=== PATIENT | female | born 1990 | race Caucasian/White ===

== ENCOUNTER 2016-07-05 09:55 | Emergency (ER) | payer OTHER ==
[~2016-07-05] VITALS: Wt 76.0 kg
[~2016-07-05 09:55] MED LIST: IRON45TA2 PO; NOVO3I IV; NPH,100V SQ; PREN1TAB17 PO
--- NOTE | 2016-07-05 12:25 | RADRPT ---
PROCEDURE: US OB. CLINICAL INDICATION: pain, No FHT TECHNIQUE: Transabdominal views of the pelvis are available for review. COMPARISON: 05/10/16 FINDINGS: There is a single intrauterine gestation with the crown-rump length measuring 7.1 cm, corresponding to a gestational age of 13 weeks and 2 days. The heart rate is noted at 154 bpm. The ovaries are not visualized. There is no free fluid. RPTAT: AA IMPRESSION: Single live intrauterine with an estimated gestational age of 13 weeks and 2 days, based o n ultrasound measurements. ELIZABETH based on ultrasound measurements is 01/08/17. .Sunday Laurent MD, MD Date Time Electronically viewed and signed by .Sunday Laurent MD, MD on 07/05/2016 12:25 .S/
--- NOTE | 2016-07-05 12:34 | ERD ---
ER Documentation Chief Complaint Date/Time DATE: 07/05/16 TIME: 12:31 Chief Complaint SENT FOR NO HEART TONE HPI This is a female who presents to the emergency department today by her clinic for no heart tones on upward. Patient is approximately 13-14 weeks . Patient was sent here to emergency department for further evaluation of an ultrasound. Patient denies any abdominal pain, vaginal bleeding, dysuria. ROS All systems reviewed and are negative except as per history of present illness. Medications Home Meds Reported Medications Insulin Aspart* (Novolog Insulin Pen*) 100 Unit/Ml Soln, 12 UNIT IV AC BREAKFAST DINNER 03/17/13 Nph, Human Insulin Isophane (Humulin N) 100 Units/Ml Vial, 20 SQ AC MEALS 03/17/13 Nph, Human Insulin Isophane (Humulin N) 100 Units/Ml Vial, 30 SQ AC DINNER 03/17/13 Iron,Carbonyl (IRON) 45 Mg Tablet, 45 MG PO DAILY 03/17/13 Vit-Iron Fumarate-FA ( Tablet) 1 Each Tablet, 1 EACH PO DAILY 03/17/13 Allergies Allergies: Coded Allergies: No Known Allergies (Verified Allergy, Unknown, 05/10/16) PMhx/Soc History of Surgery: Yes (csection) Anesthesia Reaction: No Hx Neurological Disorder: No Hx Respiratory Disorders: No Hx Cardiac Disorders: No Hx Psychiatric Problems: No Hx Miscellaneous Medical Probl: Yes (gestational diabetes) Hx Alcohol Use: No Hx Substance Use: No Hx Tobacco Use: No Smoking Status: Never smoker Physical Exam Vitals Vital Signs Date Time Temp Pulse Resp B/P Pulse Ox O2 Delivery O2 Flow Rate FiO2 07/05/16 10:04 98.4 100 18 143/74 99 Physical Exam Const: Well-appearing, no acute distress Head: Atraumatic Eyes: Normal Conjunctiva ENT: Normal External Ears, Nose and Mouth. Neck: Full range of motion..~ No meningismus. Resp: Clear to auscultation bilaterally Cardio: Regular rate and rhythm, no murmurs Abd: Soft, non tender, non distended. Normal bowel sounds. No right lower quadrant pain. No left lower quadrant pain. Skin: No petechiae or rashes Ext: No cyanosis, or edema Neur: Awake and alert Psych: Normal Mood and Affect Procedures/MDM This is a 25 year-old female who presents to emergency department today by her clinic for no heart tones at her visit today. Patient is a 14 week and has gestational diabetes. Patient denied any abdominal pain, dysuria, vaginal bleeding and I do not feel the patient requires a complete OB workup. Patient had been seen here in April for vaginal bleeding however there is no vaginal bleeding at this time. I did obtain a second trimester ultrasound Per the ultrasound report patient has a single live intrauterine with an estimate gestational age of 13 weeks and 2 days. ELIZABETH based on ultrasound measurement is 01/08/2017. heart rate is noted 154 bpm. There is no free fluid. I have explained the results the patient. She may follow up with her clinic for further evaluation. I do not feel the patient requires laboratory work or other imaging at this time. Patient appears to have a viable . She is followed for her gestational diabetes at her clinic. Low suspicion for acute surgical abdomen. Discussed the patient with Dr. Singh and he is in agreement with the plan. Departure Diagnosis: Primary Impression: Unable to hear heart tones as reason for ultrasound scan Condition: SHAVON Fitch PA-C Jul 05, 2016 12:34
== END 2016-07-05 12:44 | disposition home or self-care (01) ==
LOC: FTE 09:55
DX: O36.8910 Maternal care for other specified fetal problems, first trimester, not applicable or unspecified (principal); O24.414 Gestational diabetes mellitus in pregnancy, insulin controlled; Z3A.13 13 weeks gestation of pregnancy; Z79.4 Long term (current) use of insulin
CPT/HCPCS: 76801; Z7502

== ENCOUNTER 2016-09-24 21:35 | Outpatient (CLI) | payer OTHER ==
[~2016-09-24] VITALS: Ht 162.6 cm; Wt 96.2 kg
[2016-09-24 21:50] VITALS: Ht 162.6 cm; Wt 96.2 kg
[2016-09-24 21:51] VITALS: BP 137/75; PULSE 96; RESP 18
[2016-09-24 22:50] LABS: ADD SCAN DIFF NO
[2016-09-24 22:52] LABS: BASOPHILS % 0.2 % (0.0-2.0); EOSINOPHILS # 0.1 10^3/ul (0.0-0.5); EOSINOPHILS % 0.8 % (0.0-7.0); HEMATOCRIT 31.4 % (37.0-47.0); LYMPHOCYTES # 1.9 10^3/ul (0.8-2.9); LYMPHOCYTES % 19.6 % (15.0-51.0); MEAN CORPUSCULAR HEMOGLOBIN 30.3 pg (29.0-33.0); MEAN CORPUSCULAR VOLUME 86.5 fl (82.0-101.0); MEAN PLATELET VOLUME 9.3 fl (7.4-10.4); MONOCYTE # 0.5 10^3/ul (0.3-0.9); MONOCYTES % 5.2 % (0.0-11.0); NEUTROPHIL # 7.2 10^3/ul (1.6-7.5); NEUTROPHILS % 72.9 % (39.0-77.0); PLATELET COUNT 267 10^3/UL (140-415); RED BLOOD COUNT 3.63 10^6/ul (4.20-5.40); RED CELL DISTRIBUTION WIDTH 12.8 % (11.5-14.5); WHITE BLOOD COUNT 9.8 10^3/ul (4.8-10.8)
[2016-09-24 22:57] LABS: ADD UMIC YES; URINE BILIRUBIN (Dip) NEGATIVE (NEGATIVE); URINE BLOOD (Dip) NEGATIVE (NEGATIVE); URINE COLOR LT. YELLOW (YELLOW); URINE GLUCOSE (Dip) NEGATIVE (NEGATIVE); URINE KETONES (Dip) NEGATIVE (NEGATIVE); URINE LEUKOCYTE ESTERASE (Dip) TRACE (NEGATIVE); URINE NITRITE (Dip) NEGATIVE (NEGATIVE); URINE TOTAL PROTEIN (Dip) NEGATIVE (NEGATIVE); URINE UROBILINOGEN (Dip) 0.2 E.U./dL (0.1-1.0)
[2016-09-24 23:08] LABS: SQUAMOUS EPITHELIAL CELL,UR FEW; URINE RBCS 0-2 /HPF (0)
--- NOTE | 2016-09-24 23:27 | TRIAGE ---
OB Triage Datetime Report Generated by CPN: 09/24/2016 23:26 Datetime: 09/24/2016 23:15 Bedside Blood Glucose: 96 Datetime: 09/24/2016 21:52 Assessment Type: Triage Maternal Assessment Level of Consciousness: Fully Conscious DTR's/Clonus: DTRs 2+; No Clonus Headache: Denies Blurred Vision: No Respiratory Effort: Unlabored Nausea/Vomiting: Denies RUQ Epigastric Pain: Denies Lower Extremities Edema: None Degree: None Upper Extremities Edema: None Degree: None Facial Edema: None Fall Risk Assessment History of Falling: (0) No Secondary Diagnosis: (0) No Ambulatory Aid: (0) Bedrest/Nurse Assist IV Therapy: (0) No Gait: (0) Normal/Bedrest/Immobile Mental Status: (0) Oriented to Own Ability Fall Score: 0 Fall Risk Score Definition: No Risk: No action required Datetime: 09/24/2016 21:46 Time of Arrival: 09/24/2016 21:35 EGA: 25.6 Arrived By: Wheelchair Arrived From: Home Chief Complaint: right side abdominal pain comes and goes Movement: Present Contractions: Denies/Absent Rupture of Membranes: Denies Vaginal Bleeding: None Vaginal Discharge: Denies Recent Sexual Intercouse: Denies Abdominal Trauma: Not Applicable Patient Complaints: Other Time Provider Notified: 09/24/2016 22:00 Provider Notified: Trinity Initial Plan: NATTY
--- NOTE | 2016-09-24 23:41 | PN ---
Date/Time of Note Date/Time of Note DATE: 09/24/16 TIME: 23:33 OB Subjective Subjective Subjective 25 y.o at 25w5d with c/o RLQ alexy for few days on and off no GI sx or febrile episodes or urinary sx alleviated by resting ,aggreviated by activities, roll over to opposite site OB Objective Objective Objective no uterine contractions detected abdomen soft no sinificant tenderness or rebound tenderness or guarding or referring tenderness u/a neg urine culture was sent CBC CMP all wnl OB Assessment/Plan Other Assessment: ligament pain Other plan: d/s home with abdominal binder rec to rest rth if sx increased f/u with her OB in 2days FRANSISCO DELONG MD September 24, 2016 23:41
== END 2016-09-24 23:26 | disposition home or self-care (01) ==
LOC: OBT 21:35 → L-D 21:36 → OBT 23:26
PROVIDERS: ATTEND Obstetrics & Gynecology
DX: O26.892 Other specified pregnancy related conditions, second trimester (principal); R10.2 Pelvic and perineal pain; Z3A.25 25 weeks gestation of pregnancy
CPT/HCPCS: 81001; 82962; 85025; 87086; Z7500; 81003; G0463

== ENCOUNTER 2016-10-13 15:52 | Outpatient (CLI) | payer OTHER ==
[~2016-10-13] VITALS: Ht 162.6 cm; Wt 94.9 kg
[2016-10-13 15:58] VITALS: BMI 35.9
[2016-10-13 16:09] VITALS: BP 125/71; PULSE 103; RESP 19; Ht 162.6 cm; Wt 94.9 kg
[2016-10-13] MEDS ORDERED: INSU100I22 SC (16:17)
--- NOTE | 2016-10-13 16:33 | RADRPT ---
PROCEDURE: OB ultrasound for biophysical profile CLINICAL INDICATION: Biophysical profile. . TECHNIQUE: Multiple sonographic images of the pelvis were obtained. Transabdominal views are obta ined. COMPARISON: 07/05/2016 FINDINGS: Single intrauterine gestation. Presentation: Cephalic. Placenta: Anterior. No evidence of placental abruption. No evidence of placenta previa. breathing movement = 2/2 tone = 2/2 motion = 2/2 TOSHIA = 2/2 TOSHIA = 15.7 cm heart rate: 174 beats per minute IMPRESSION: Single intrauterine gestation. Biophysical profile 12/31 RPTAT: AADD .Napoleon Larsen MD, MD Date Time Electronically viewed and signed by .Napoleon Larsen MD, on 10/13/2016 16:33 .B/
--- NOTE | 2016-10-13 17:11 | QN ---
Documentation Comment iup 28 weeks DFM vss exam wnl US wnl a/p DFM resolved dc home AUBREY RICHEY MD October 13, 2016 17:11
--- NOTE | 2016-10-13 17:16 | TRIAGE ---
OB Triage Datetime Report Generated by CPN: 10/13/2016 17:15 Datetime: 10/13/2016 16:53 Stage of : OB Triage Maternal Assessment Level of Consciousness: Fully Conscious DTR's/Clonus: DTRs 1+ Headache: Denies Breath Sounds, Left: Clear and Equal Breath Sounds, Right: Clear and Equal Nausea/Vomiting: Denies RUQ Epigastric Pain: Denies Monitor Mode: External Resting Tone [place]: Relaxed Heart Rate FHR Baseline Rate: 140 Monitor Mode: External US Variability: Moderate 6-25 bpm Accelerations: 15X15 Decelerations: None Category: Category I Pain Assessment Pain Scale: 0 Pain Presence: None/Denies Pain Type: N/A Pain Goal: 3 Vaginal Exam Membrane Status: Intact Datetime: 10/13/2016 16:10 Maternal Assessment Level of Consciousness: Fully Conscious DTR's/Clonus: DTRs 1+ Headache: Denies Blurred Vision: No Respiratory Effort: Unlabored Breath Sounds, Left: Clear and Equal Breath Sounds, Right: Clear and Equal Nausea/Vomiting: Denies RUQ Epigastric Pain: Denies Facial Edema: None Monitor Mode: External Resting Tone [place]: Relaxed Heart Rate FHR Baseline Rate: 140 Monitor Mode: External US Variability: Moderate 6-25 bpm Accelerations: 15X15 Decelerations: None Category: Category I Pain Assessment Pain Scale: 0 Pain Presence: None/Denies Pain Type: N/A Pain Goal: 3 Vaginal Exam Membrane Status: Intact Datetime: 10/13/2016 15:59 Assessment Type: Triage Maternal Assessment Level of Consciousness: Fully Conscious DTR's/Clonus: DTRs 2+; No Clonus Headache: Denies Blurred Vision: No Respiratory Effort: Unlabored; Regular Rhythm; Equal Expansion Breath Sounds, Left: Clear and Equal Breath Sounds, Right: Clear and Equal Nausea/Vomiting: Denies RUQ Epigastric Pain: Denies Lower Extremities Edema: None Degree: None Upper Extremities Edema: None Degree: None Facial Edema: None Fall Risk Assessment History of Falling: (0) No Secondary Diagnosis: (0) No Ambulatory Aid: (0) Bedrest/Nurse Assist IV Therapy: (0) No Gait: (0) Normal/Bedrest/Immobile Mental Status: (0) Oriented to Own Ability Fall Score: 0 Fall Risk Score Definition: No Risk: No action required Datetime: 10/13/2016 15:55 Stage of : OB Triage Time of Arrival: 10/13/2016 15:55 EGA: 28.4 Arrived By: Ambulatory Arrived From: Home Chief Complaint: DFM SINCE FRIDAY Movement: Present Contractions: Denies/Absent Rupture of Membranes: Denies Vaginal Discharge: Denies Recent Sexual Intercouse: Denies Abdominal Trauma: Not Applicable Additional Patient Complaints: NONE Time Provider Notified: 10/13/2016 16:00 Provider Notified: SHAMSIAN Initial Plan: NST AND BPP Datetime: 09/24/2016 23:14 Labor Evaluation Frequency: 0 Monitor Mode: External Duration (sec)2399: 0 Pattern: Normal: <= 5 Contractions in 10 Minutes Resting Tone [place]: Relaxed Contraction Comments: uterus soft, pt denies feeling cramping. Heart Rate FHR Baseline Rate: 150 Monitor Mode: External US Variability: Moderate 6-25 bpm Accelerations: 15X15 Decelerations: None Category: Category I Datetime: 09/24/2016 21:52 Fall Score: 0 Fall Risk Score Definition: No Risk: No action required Datetime: 09/24/2016 21:46 EGA: 25.6
== END 2016-10-13 17:09 | disposition home or self-care (01) ==
LOC: OBT 15:52 → L-D 15:53 → OBT 17:09
PROVIDERS: ATTEND Obstetrics & Gynecology
DX: O36.8120 Decreased fetal movements, second trimester, not applicable or unspecified (principal); Z3A.28 28 weeks gestation of pregnancy
CPT/HCPCS: 76818; G0463

== ENCOUNTER 2016-10-26 19:54 | Outpatient (CLI) | payer OTHER ==
[~2016-10-26] VITALS: Ht 162.6 cm; Wt 98.6 kg
[~2016-10-26 19:54] MED LIST changes: +INSU100I22 SC
[2016-10-26 20:10] VITALS: BP 135/71; PULSE 95; RESP 18
[2016-10-26] MEDS ORDERED: ASPI-664 PO (20:18)
[2016-10-26] MEDS ORDERED: FERR325C PO (20:19)
--- NOTE | 2016-10-26 22:43 | QN ---
Documentation Comment OB Triage- Laborist Pt is a 25yo at 30+3 with hx of C/S x2 presenting for progressively enlarging bump near c/s scar. Pt states she mentioned this to her clinic provider twice but did not receive instructions for what to do about it. States bump hurts when she touches it. Her mother, an RN, instructed her to use warm compresses on the area and pt has been doing so 3x/day with little improvement. Reports normal FM, denies fevers, chills, N/V, diarrhea, LOF, VB or UCs. VS T 98.3 BP 135/71 119/65 P 94 R 18 FHT: baseline 150s, mod olivia, +accels, no decels [place]: acontractile Abd: soft, gravid, 1.5x1.5cm firm, tender, mobile nodule under the pannus approx 2FB superior to healed Pfannenstiel incision, no fluctance, no surrounding erythema or edema PROCEDURE: Ultrasound soft tissues limited CLINICAL INDICATION: Lower abdominal wall. TECHNIQUE: Real time sonographic imaging of the anterior abdominal wall in the suprapubic region is performed and a total of 9 [place] scale as well as Doppler images are submitted for review COMPARISON: None available FINDINGS: In the area of concern there is an ovoid hypoechoic structure measuring 1.5 x 1.4 x 0.5 cm having increased through transmission and no internal blood flow. No additional abnormality is demonstrated. RPTAT:HJJR IMPRESSION: Ovoid hypoechoic collection in the in the suprapubic region of concern, the finding possibly an abscess of 1.5 cm. Seroma, hematoma and infected subcutaneous cysts are possibilities. Clinical follow-up is recommended. Assessment Abdominal U/S concerning for abscess vs seroma vs hematoma vs infected subcutaneous cyst Reactive NST Plan Pt is without signs/sxs of toxicity and able to tolerate POs. Given abscess is not drainable at this time, will start pt on Cephalexin 500mg q6H x7d. Rx given Baseline CBC F/up in 48H in OB triage for re-evaluation Pt to f/u w/outpatient OB clinic as scheduled Strict infection, PTL, PPROM and FKC precautions reviewed Questions answered to patient's satisfaction TORI GILES MD Oct 26, 2016 22:43
--- NOTE | 2016-10-26 23:10 | RADRPT ---
PROCEDURE: Ultrasound soft tissues limited CLINICAL INDICATION: Lower abdominal wall. TECHNIQUE: Real time sonographic imaging of the anterior abdominal wall in the suprapubic region i s performed and a total of 9 [place] scale as well as Doppler images are submitted for review COMPARISON: None available FINDINGS: In the area of concern there is an ovoid hypoechoic structure measuring 1.5 x 1.4 x 0.5 cm having in creased through transmission and no internal blood flow. No additional abnormality is demonstrated. RPTAT:HJJR IMPRESSION: Ovoid hypoechoic collection in the in the suprapubic region of concern, the finding possibly an absc ess of 1.5 cm. Seroma, hematoma and infected subcutaneous cysts are possibilities. Clinical follow -up is recommended. Physician Halle Date Time Electronically viewed and signed by Physician Halle on 10/26/2016 23:09 /
[2016-10-27 00:38] LABS: ADD SCAN DIFF NO
[2016-10-27 00:42] LABS: BASOPHILS % 0.1 % (0.0-2.0); EOSINOPHILS # 0.1 10^3/ul (0.0-0.5); EOSINOPHILS % 0.6 % (0.0-7.0); HEMATOCRIT 32.8 % (37.0-47.0); HEMOGLOBIN 11.2 g/dl (12.0-16.0); LYMPHOCYTES # 2.4 10^3/ul (0.8-2.9); LYMPHOCYTES % 22.1 % (15.0-51.0); MEAN CORPUSCULAR HEMOGLOBIN 29.9 pg (29.0-33.0); MEAN CORPUSCULAR HGB CONC 34.1 g/dl (32.0-37.0); MEAN CORPUSCULAR VOLUME 87.5 fl (82.0-101.0); MEAN PLATELET VOLUME 9.8 fl (7.4-10.4); MONOCYTE # 0.5 10^3/ul (0.3-0.9); MONOCYTES % 4.8 % (0.0-11.0); NEUTROPHIL # 7.8 10^3/ul (1.6-7.5); NEUTROPHILS % 71.5 % (39.0-77.0); PLATELET COUNT 282 10^3/UL (140-415); RED BLOOD COUNT 3.75 10^6/ul (4.20-5.40); RED CELL DISTRIBUTION WIDTH 12.8 % (11.5-14.5); WHITE BLOOD COUNT 10.8 10^3/ul (4.8-10.8)
== END 2016-10-26 23:45 | disposition home or self-care (01) ==
LOC: OBT 19:54 → L-D 19:54 → OBT 23:45
PROVIDERS: ATTEND Obstetrics & Gynecology
DX: O26.893 Other specified pregnancy related conditions, third trimester (principal); R10.30 Lower abdominal pain, unspecified; Z3A.30 30 weeks gestation of pregnancy
CPT/HCPCS: 36415; 76536; 85025; Z7500; G0463

== ENCOUNTER 2016-10-28 12:11 | Outpatient (CLI) | payer OTHER ==
[~2016-10-28] VITALS: Ht 162.6 cm; Wt 96.5 kg
[~2016-10-28 12:11] MED LIST changes: +ASPI-664 PO; +FERR325C PO; -IRON45TA2 PO
[2016-10-28 13:40] VITALS: Ht 162.6 cm; Wt 96.5 kg
[2016-10-28 13:41] VITALS: BP 106/58; PULSE 90
--- NOTE | 2016-10-28 14:51 | QN ---
Documentation Comment iup 29 weeks abd pain vss exam wnl us wnl a/p iup 29 weeks false labor AUBREY RICHEY MD Oct 28, 2016 14:51
== END 2016-10-28 16:00 | disposition home or self-care (01) ==
LOC: OBT 12:11 → L-D 12:12 → OBT 16:00
PROVIDERS: ATTEND Obstetrics & Gynecology
DX: O47.03 False labor before 37 completed weeks of gestation, third trimester (principal); Z3A.29 29 weeks gestation of pregnancy
CPT/HCPCS: 82962; Z7500; G0463

== ENCOUNTER 2016-11-02 14:46 | Inpatient (IN) | payer OTHER ==
[~2016-11-02] VITALS: Ht 162.6 cm; Wt 95.1 kg
[2016-11-02] MEDS: LACTATED RINGER'S 1,000 ML IV SCH (01:15)
[2016-11-02 15:14] VITALS: BP 122/74; PULSE 103; RESP 18
[2016-11-02] MEDS ORDERED: NPH,100I5 SQ (15:31)
[2016-11-02] MEDS ORDERED: CALC600T11 PO (15:32)
[2016-11-02] MEDS ORDERED: ACETAMINOPHEN 325 MG TAB PO PRN ×2 (16:15→16:30)
[2016-11-02] MEDS ORDERED: LACTATED RINGER'S 1,000 ML IV* SCH (16:30)
--- NOTE | 2016-11-02 16:37 | PN ---
Triage Information Date/Time Weeks of Gestation Patient is 3 para 2 at 31+3 weeks of gestation : 3 Para: 2 Diabetes: gestational Diabetes management: insulin controlled Hypertention: none Additional information Patient presents with lower back pain and reports occasional contractions Objective Vital Signs Date Time Temp Pulse Resp B/P Pulse Ox O2 Delivery O2 Flow Rate FiO2 11/02/16 15:14 98.3 103 18 122/74 98 Room Air Exam heart rate positive accelerations, no decelerations [place] irregular Results/Medications Medications Current Medications Lactated Ringer's (Lr) 1,000 ml @ 0 mls/hr Q0M IV* ; Start 11/02/16 at 16:30 Acetaminophen (Tylenol Tab) 650 mg Q4H PRN PO PAIN AND OR ELEVATED TEMP; Start 11/02/16 at 16:15 Assessment/Plan 31+3 weeks of gestation with contractions Patient gestational diabetic insulin-dependent We will start IV fluid Accu-Chek Tylenol for back pain We will obtain cervical length and fibronectin and biophysical profile FELISHA QUIJANO MD Nov 02, 2016 16:37
--- NOTE | 2016-11-02 17:28 | RADRPT ---
PROCEDURE: OB ultrasound limited for biophysical profile . CLINICAL INDICATION: labor. TECHNIQUE: Multiple sonographic images of the pelvis were obtained. Transabdominal view of the gr avid uterus are available for review. The images were reviewed on a PACS workstation. COMPARISON: 10/13/2016 FINDINGS: breathing movement = 2/2 tone = 2/2 motion = 2/2 Amniotic fluid volume = 2/2 TOSHIA = 13.5 cm Cephalic presentation. Heart rate 144 beats per minute. Anterior grade 0 placenta. Cervix appears closed measuring 4.6 cm in length. IMPRESSION: 1. Single viable intrauterine gestation. 2. Biophysical profile = 8/8. 3. TOSHIA = 13.5 cm. RPTAT: QQ .Eldon Chaidez MD, Date Time Electronically viewed and signed by .Eldon Chaidez MD, on 11/02/2016 17:28 .L/
[2016-11-02] MEDS ORDERED: LACTATED RINGER'S 1,000 ML IV SCH (20:00)
--- NOTE | 2016-11-02 21:23 | HP ---
Date/Time of Note Date/Time of Note DATE: 11/02/16 TIME: 21:18 OB - History Hx of Present Free Text/Dictation Patient 3 para 2 at 31+3 weeks of gestation who presented with contractions Patient received 2 L of IV fluid hydration and continued to contract every 2-3 minutes despite the hydration Patient's prior obstetrical history significant for 2 PROCEDURE: OB ultrasound limited for biophysical profile . CLINICAL INDICATION: labor. TECHNIQUE: Multiple sonographic images of the pelvis were obtained. Transabdominal view of the gravid uterus are available for review. The images were reviewed on a PACS workstation. COMPARISON: 10/13/2016 FINDINGS: breathing movement = 2/2 tone = 2/2 motion = 2/2 Amniotic fluid volume = 2/2 TOSHIA = 13.5 cm Cephalic presentation. Heart rate 144 beats per minute. Anterior grade 0 placenta. Cervix appears closed measuring 4.6 cm in length. IMPRESSION: 1. Single viable intrauterine gestation. 2. Biophysical profile = 8/8. 3. TOSHIA = 13.5 cm. RPTAT: QQ .Eldon Chaidez MD, MD Date Time Electronically viewed and signed by .Eldon Chaidez MD, MD on 11/02/2016 17:28 .L/ CC: FELISHA QUIJANO MD : 3 Para: 2 Care: Good Care Obstetrical Complications: Gestational Diabetes Other Concerns: Patient has gestational diabetes currently on insulin Past Family/Social History * Past Medical, Surgical, Family and Obstetric Histories reviewed from chart. OB Admission Exam Vital Signs Vital Signs Vital Signs Date Time Temp Pulse Resp B/P Pulse Ox O2 Delivery O2 Flow Rate FiO2 11/02/16 15:14 98.3 103 18 122/74 98 Room Air Physical Exam HEENT: WNL Heart: Rhythm Normal Lungs: Clear, Equal Abdomen: WNL Extremities: Normal Reflexes: Normal Cervical Dilatation: None Membranes: Intact Heart Rate: 140's Accelerations: Accelerations Present Decelerations: No Decelerations Contractions on Admission: < 5 Minutes Apart Last 72 hourBlood Glucose Bedside Glucose - 72 Hours Test 11/02/16 17:35 Bedside Glucose 67mg/dL (70-220) L OB Assessment/Plan Other Assessment: 31+3 weeks of gestation with contractions Patient with gestational diabetes currently on insulin Patient with prior history of 2 Other plan: We will admit to antepartum We will start Procardia 30 mg p.o. twice daily We will give betamethasone for lung maturity We will obtain perinatology consult FELISHA QUIJANO MD Nov 02, 2016 21:23
[2016-11-02] MEDS ORDERED: AL HYDROX/MG HYDROX/SIMETH 30 ML CUP PO PRN (21:30)
--- NOTE | 2016-11-02 21:44 | TRIAGE ---
OB Triage Datetime Report Generated by CPN: 11/02/2016 21:44 Datetime: 11/02/2016 19:00 Labor Evaluation Frequency: OCCASIONAL Monitor Mode: External Duration (sec)2399: 50-80 Quality: Mild Pattern: Normal: <= 5 Contractions in 10 Minutes Resting Tone [place]: Relaxed Contraction Comments: UPSIDE DOWN Monitor Mode: External US Comments: FHTS OFF MONITOR WHILE PT SITTING UP, EATING. Datetime: 11/02/2016 18:57 Assessment Type: Triage Datetime: 11/02/2016 17:36 Bedside Blood Glucose: 67 Datetime: 11/02/2016 17:00 Labor Evaluation Frequency: 2-5 Monitor Mode: External Duration (sec)2399: 50-90 Quality: Mild Pattern: Normal: <= 5 Contractions in 10 Minutes Resting Tone [place]: Relaxed Monitor Mode: External US Comments: OFF MONITOR DUE TO MOVEMENT Datetime: 11/02/2016 15:59 Labor Evaluation Frequency: 2-5 Monitor Mode: External Duration (sec)2399: 50-80 Quality: Mild Pattern: Normal: <= 5 Contractions in 10 Minutes Resting Tone [place]: Relaxed Heart Rate FHR Baseline Rate: 155 Monitor Mode: External US FHR Baseline Changes: No Baseline Change Variability: Moderate 6-25 bpm Accelerations: 15X15 Datetime: 11/02/2016 15:23 Labor Evaluation Frequency: 2-6 Monitor Mode: External Duration (sec)2399: 50-100 Quality: Mild Resting Tone [place]: Relaxed Heart Rate FHR Baseline Rate: 150 Monitor Mode: External US FHR Baseline Changes: No Baseline Change Variability: Moderate 6-25 bpm Accelerations: 15X15 Decelerations: None Category: Category I Datetime: 11/02/2016 15:22 Stage of : OB Triage Assessment Type: Triage Maternal Assessment Level of Consciousness: Fully Conscious Headache: Denies Blurred Vision: No Respiratory Effort: Unlabored; Regular Rhythm; Equal Expansion Breath Sounds, Left: Clear and Equal Breath Sounds, Right: Clear and Equal Nausea/Vomiting: Denies RUQ Epigastric Pain: Denies Lower Extremities Edema: None Degree: None Upper Extremities Edema: None Degree: None Facial Edema: None Temperature Route: Oral Fall Risk Assessment History of Falling: (0) No Secondary Diagnosis: (0) No Ambulatory Aid: (0) Bedrest/Nurse Assist IV Therapy: (0) No Gait: (0) Normal/Bedrest/Immobile Mental Status: (0) Oriented to Own Ability Fall Score: 0 Fall Risk Score Definition: No Risk: No action required Pain Assessment Pain Scale: 6 Pain Presence: Constant Pain Type: Cramping Pain Location: Back Pain Assessment Comments: PT ALSO REPORTS FEELING ABDOMINAL TIGHTENING AND PRESSURE Q2MIN, BUT DEN IES PAIN. Datetime: 11/02/2016 15:18 Time of Arrival: 11/02/2016 14:38 EGA: 31.3 Arrived By: Wheelchair Arrived From: Emergency Dept Chief Complaint: CONSTANT LOWER BACK PAIN FROM 11/01, 11/02; PT ALSO REPORTS FEELING ABDOMINI GAL TIGHTENING AND PRESSURE, BUT DENIES ABDOMINAL PAIN. Movement: Present Contractions: Regular Time Contractions Began: 11/01/2016 20:00 Contractions: 2 Rupture of Membranes: Denies Vaginal Bleeding: None Vaginal Discharge: Present Recent Sexual Intercouse: Denies Abdominal Trauma: Not Applicable Patient Complaints: Back Pain; Other Time Provider Notified: 11/02/2016 16:50 Provider Notified: DR. QUIJANO Initial Plan: EFM x2, FFN, CERVICAL LENGTH, IV HYDRATION, TYLENOL FOR BACK PAIN, ACCUCHECK, BPP Datetime: 10/28/2016 15:43 Bedside Blood Glucose: 69 Datetime: 10/28/2016 15:01 Stage of : OB Triage Datetime: 10/28/2016 14:37 Labor Evaluation Frequency: 0 Resting Tone [place]: Relaxed Monitor Mode: External US Comments: MATERNAL Pain Assessment Pain Scale: 0 Pain Presence: None/Denies Pain Type: N/A Pain Goal: 3 Pain Relief Measures: Comfort Measures Datetime: 10/28/2016 13:39 Stage of : OB Triage Datetime: 10/28/2016 13:37 Stage of : OB Triage Assessment Type: Triage Maternal Assessment Level of Consciousness: Fully Conscious DTR's/Clonus: DTRs 2+; No Clonus Headache: Denies Blurred Vision: No Respiratory Effort: Unlabored; Regular Rhythm; Equal Expansion Breath Sounds, Left: Clear and Equal Breath Sounds, Right: Clear and Equal Nausea/Vomiting: Denies RUQ Epigastric Pain: Denies Facial Edema: None Temperature Route: Axillary Fall Risk Assessment History of Falling: (0) No Secondary Diagnosis: (0) No Ambulatory Aid: (0) Bedrest/Nurse Assist IV Therapy: (0) No Gait: (0) Normal/Bedrest/Immobile Mental Status: (0) Oriented to Own Ability Fall Score: 0 Fall Risk Score Definition: No Risk: No action required Labor Evaluation Frequency: 0 Monitor Mode: External Pattern: Normal: <= 5 Contractions in 10 Minutes Resting Tone [place]: Relaxed Heart Rate FHR Baseline Rate: 150 Monitor Mode: External US Variability: Moderate 6-25 bpm Accelerations: 10X10 Decelerations: None Category: Category I Pain Assessment Pain Scale: 0 (Annotations: UNLESS TOUCHING ABSCESS) Pain Presence: None/Denies Pain Type: N/A Pain Location: Abdomen Pain Goal: 3 Pain Relief Measures: Comfort Measures Datetime: 10/28/2016 13:36 Time of Arrival: 10/28/2016 13:00 EGA: 30.5 Arrived By: Ambulatory Arrived From: Home Chief Complaint: FOLLOW UP POSS ABDOMINAL ABCESS DENIES LEAKING OF FLUID, BLEEDING OR UC'S Movement: Present Contractions: Denies/Absent Rupture of Membranes: Denies Vaginal Bleeding: None Vaginal Discharge: Denies Recent Sexual Intercouse: Denies Abdominal Trauma: Not Applicable Patient Complaints: None Time Provider Notified: 10/28/2016 13:39 Provider Notified: SHAMSIAN Initial Plan: MONITOR, Datetime: 10/26/2016 23:27 Stage of : OB Triage Datetime: 10/26/2016 23:15 Stage of : OB Triage Datetime: 10/26/2016 22:13 Stage of : OB Triage Datetime: 10/26/2016 22:03 Stage of : OB Triage Datetime: 10/26/2016 21:25 Stage of : OB Triage Datetime: 10/26/2016 21:04 Stage of : OB Triage Labor Evaluation Frequency: 0 Monitor Mode: External Resting Tone [place]: Relaxed Heart Rate FHR Baseline Rate: 150 Monitor Mode: External US Variability: Moderate 6-25 bpm Accelerations: 15X15 Decelerations: None Category: Category I Pain Assessment Pain Scale: 2 Pain Presence: Constant Pain Type: Ache Pain Location: Abdomen Pain Relief Measures: Comfort Measures Pain Assessment Comments: Pain related to small low abdominal lump. Datetime: 10/26/2016 20:31 Stage of : OB Triage Datetime: 10/26/2016 20:29 Stage of : OB Triage Datetime: 10/26/2016 20:22 Time of Arrival: 10/26/2016 19:43 EGA: 30.3 Arrived By: Wheelchair Arrived From: Home Chief Complaint: Painful small abdominal protrusion Movement: Present Contractions: Denies/Absent Rupture of Membranes: Denies Vaginal Discharge: Denies Recent Sexual Intercouse: Denies Abdominal Trauma: Not Applicable Patient Complaints: Other Time Provider Notified: 10/26/2016 20:20 Provider Notified: JESUSITA Initial Plan: VS, EFM, Eval by laborist, NST, CBC Datetime: 10/26/2016 20:14 Stage of : OB Triage Datetime: 10/26/2016 20:13 Assessment Type: Triage Maternal Assessment Level of Consciousness: Fully Conscious DTR's/Clonus: DTRs 2+; No Clonus Headache: Denies Blurred Vision: No Respiratory Effort: Unlabored Breath Sounds, Left: Clear and Equal Breath Sounds, Right: Clear and Equal Nausea/Vomiting: Denies RUQ Epigastric Pain: Denies Lower Extremities Edema: None Degree: None Upper Extremities Edema: None Degree: None Facial Edema: None Fall Risk Assessment History of Falling: (0) No Secondary Diagnosis: (15) Yes (Annotations: GDM ON INSULIN CS X 2) Ambulatory Aid: (0) Bedrest/Nurse Assist IV Therapy: (0) No Gait: (0) Normal/Bedrest/Immobile Mental Status: (0) Oriented to Own Ability Fall Score: 15 Fall Risk Score Definition: No Risk: No action required Datetime: 10/26/2016 20:00 Stage of : OB Triage Comments: Maternal pulse captured as indicated by SPO2 monitoring Datetime: 10/26/2016 19:55 Stage of : OB Triage Monitor Mode: External Monitor Mode: External US Datetime: 10/13/2016 15:59 Fall Score: 0 Fall Risk Score Definition: No Risk: No action required Datetime: 10/13/2016 15:55 EGA: 28.4 Datetime: 09/24/2016 21:52 Fall Score: 0 Fall Risk Score Definition: No Risk: No action required Datetime: 09/24/2016 21:46 EGA: 25.6
[2016-11-02] MEDS ORDERED: GLUCAGON 1 MG INJ IM PRN (22:00)
[2016-11-02] MEDS ORDERED: GLUCOSE GEL 15 GRAM TUBE BUCCAL PRN (22:00)
[2016-11-02] MEDS ORDERED: DEXTROSE 50% 50 ML SYRINGE IV PRN ×2 (22:00)
[2016-11-02] MEDS ORDERED: GLUCOSE GEL 15 GRAM TUBE PO PRN ×2 (22:00)
[2016-11-02] MEDS: BETAMET NA PHOS/AC(6 MG/ML) 5ML INJ IM SCH (23:02)
[2016-11-02] MEDS: NIFEdipine (XL) 30 MG TAB PO SCH (23:02)
[2016-11-02] MEDS: INSULIN ISOPHANE (NPH) 10 ML INJ SC SCH (23:15)
[2016-11-03] MEDS: LACTATED RINGER'S 1,000 ML IV SCH ×3 (05:22→16:51)
[2016-11-03] MEDS: ACCU-CHEK XX SCH ×5 (06:00→20:12)
[2016-11-03] MEDS ORDERED: INSULIN ISOPHANE (NPH) 10 ML INJ SC SCH ×2 (07:05→21:00)
[2016-11-03] MEDS ORDERED: NPH, HUMAN INSULIN ISOPHANE 3ML VIAL SC SCH (07:30)
[2016-11-03] MEDS ORDERED: INSULIN ASPART [NOVOLOG] 3 ML PEN SC SCH (07:35)
[2016-11-03] MEDS: NIFEdipine (XL) 30 MG TAB PO SCH ×2 (08:36→20:51)
[2016-11-03] MEDS: MULTIVIT/MIN/FOLATE/IRON/PREN TAB PO SCH (08:36)
[2016-11-03] MEDS: FERROUS SULFATE (EC) 325 MG TAB PO SCH (08:36)
[2016-11-03] MEDS: ASPIRIN (EC) 81 MG TAB PO SCH (08:36)
[2016-11-03] MEDS: SENNA TAB PO SCH (08:36)
[2016-11-03] MEDS: NPH, HUMAN INSULIN ISOPHANE 3ML VIAL SC SCH (08:39)
[2016-11-03] MEDS: INSULIN ASPART [NOVOLOG] 3 ML PEN SC SCH ×2 (08:41→17:26)
[2016-11-03] MEDS ORDERED: FERROUS SULFATE (EC) 325 MG TAB PO SCH (09:00)
[2016-11-03] MEDS ORDERED: MULTIVIT/MIN/FOLATE/IRON/PREN TAB PO SCH (09:00)
[2016-11-03] MEDS ORDERED: ASPIRIN 81 MG TAB GTB SCH (09:00)
[2016-11-03] MEDS: ACETAMINOPHEN 325 MG TAB PO PRN (12:22)
[2016-11-03] MEDS ORDERED: INSULIN ASPART [NOVOLOG] 3 ML PEN IV SCH (17:35)
[2016-11-03] MEDS: INSULIN ISOPHANE (NPH) 10 ML INJ SC SCH (20:52)
[2016-11-03] MEDS: BETAMET NA PHOS/AC(6 MG/ML) 5ML INJ IM SCH (23:01)
[2016-11-04] MEDS: LACTATED RINGER'S 1,000 ML IV SCH ×2 (01:39→10:16)
[2016-11-04] MEDS: ACCU-CHEK XX SCH ×3 (08:07→15:19)
[2016-11-04] MEDS: FERROUS SULFATE (EC) 325 MG TAB PO SCH (08:22)
[2016-11-04] MEDS: MULTIVIT/MIN/FOLATE/IRON/PREN TAB PO SCH (08:22)
[2016-11-04] MEDS: SENNA TAB PO SCH (08:22)
[2016-11-04] MEDS: ASPIRIN (EC) 81 MG TAB PO SCH (08:23)
[2016-11-04] MEDS: NIFEdipine (XL) 30 MG TAB PO SCH (08:23)
[2016-11-04] MEDS: NPH, HUMAN INSULIN ISOPHANE 3ML VIAL SC SCH (08:51)
[2016-11-04] MEDS: INSULIN ASPART [NOVOLOG] 3 ML PEN SC SCH ×2 (08:52→17:19)
[2016-11-04] MEDS: ACETAMINOPHEN 325 MG TAB PO PRN (12:06)
--- NOTE | 2016-11-04 17:08 | PD.PPDC ---
CALL CENTER RECEPTIONIST Discharge Instruction Condition Patient Condition: Good Follow-up Follow-up with Physician: 3, Day/Days Provider Information: follow up with your obgyn in 2-3 days call your perninatologitst with your blood sugars the next 2-3 days. return to hospital if values are consistently above 175 AUBREY RICHEY MD Nov 04, 2016 17:08
--- NOTE | 2016-11-04 22:20 | DS ---
DATE OF ADMISSION: 11/02/2016 DATE OF DISCHARGE: 11/04/2016 DISCHARGE DIAGNOSES: 1. Intrauterine at 31-1/2 weeks. 2. contractions, resolved. 3. A2 gestational diabetes on insulin. HOSPITAL COURSE: The patient is a 25-year-old G3, P2, presented at 31-1/2 weeks complaining of uter ine contractions. The patient, at that point, was admitted for contractions. Started on Pr ocardia and also to receive betamethasone. During the course of her stay, the patient was treated w ith betamethasone and has been on Procardia, is doing well. On the day of discharge, there are no u terine contractions, cervical length was greater than 4 cm, NST is reactive. The patient's blood sugars have been somewhat elevated between 120s to 160s. The patient is on insulin, however. PHYSICAL EXAMINATION ON DISCHARGE: Vital signs within normal limits. Laboratories within normal li mits. Exam within normal limits. DISPOSITION: The patient to be discharged home in stable condition. DISCHARGE INSTRUCTIONS: The patient instructed to take blood sugars 4 times a day, as she has been doing, to continue with insulin regimen, and to call her perinatologist within 2 to 3 days with the blood sugars for any adjustments. Also instructed that if the values are consistently above 175 to call perinatologist or her RAILWAY SIGNAL TECHNICIAN doctor for further advice. The patient will follow up with her OB /MEDICAL RECORDS TECH in 2 to 3 days and also perinatology in 2 to 3 days. Dictated By: AUBREY RICHEY MD /NTS Conf#: [id number] DID#: [id number] CC: FELISHA QUIJANO MD;*EndCC*
== END 2016-11-04 18:27 | disposition home or self-care (01) | DRG 778 ==
LOC: L-D 14:46 → OBT 14:46 → OBG 21:10
PROVIDERS: ADMIT Obstetrics & Gynecology Gynecology; ATTEND Obstetrics & Gynecology Gynecology
DX: O60.03 Preterm labor without delivery, third trimester (principal); O24.414 Gestational diabetes mellitus in pregnancy, insulin controlled; O34.219 Maternal care for unspecified type scar from previous cesarean delivery; Z3A.31 31 weeks gestation of pregnancy
CPT/HCPCS: 36415; 76817; 76818; 82731; 82962; 96360; 96361; G0463; J0702; J1815; J7120

== ENCOUNTER 2016-12-03 11:40 | Inpatient (IN) | payer OTHER ==
[~2016-12-03] VITALS: Ht 162.6 cm; Wt 96.9 kg
[~2016-12-03 11:40] MED LIST changes: +CALC600T11 PO; +NPH,100I5 SQ
[2016-12-03 12:08] VITALS: Ht 162.6 cm; Wt 96.9 kg
[2016-12-03 12:09] VITALS: BP 127/81; PULSE 105
[2016-12-03] MEDS: LACTATED RINGER'S 1,000 ML IV* SCH ×2 (12:40→13:11)
[2016-12-03] MEDS: TERBUTALINE 1 MG/ML INJ SC SCH ×2 (13:10→14:32)
[2016-12-03 13:12] LABS: ADD UMIC YES; UR ASCORBIC ACID NEGATIVE (NEGATIVE); UR BACTERIA FEW /HPF (NONE SEEN); UR BILIRUBIN (Dip) NEGATIVE (NEGATIVE); UR BLOOD (Dip) NEGATIVE (NEGATIVE); UR CLARITY SLIGHTLY CLOUDY (CLEAR); UR COLOR YELLOW (YELLOW); UR GLUCOSE (Dip) 1+ mg/dL (NEGATIVE); UR KETONES (Dip) 1+ mg/dL (NEGATIVE); UR LEUKOCYTE ESTERASE (Dip) 1+ Leu/ul (NEGATIVE); UR NITRITE (Dip) NEGATIVE (NEGATIVE); UR RBC 1 /HPF (0-5); UR SPECIFIC GRAVITY (Dip) 1.013 (1.003-1.030); UR SQUAMOUS EPITHELIAL CELL MODERATE /HPF (FEW); UR TOTAL PROTEIN (Dip) NEGATIVE (NEGATIVE); UR UROBILINOGEN (Dip) NEGATIVE (NEGATIVE)
[2016-12-03] MEDS ORDERED: MAGNESIUM SULFATE 4 GM/100 ML 100 ML IV ONE (17:00)
[2016-12-03] MEDS ORDERED: AMPICILLIN 2 GM/NS (PMX) 100 ML IV ONE (17:00)
[2016-12-03] MEDS ORDERED: GLUCAGON 1 MG INJ IM PRN (18:00)
[2016-12-03] MEDS ORDERED: GLUCOSE GEL 15 GRAM TUBE PO PRN ×2 (18:00)
[2016-12-03] MEDS ORDERED: GLUCOSE GEL 15 GRAM TUBE BUCCAL PRN (18:00)
[2016-12-03] MEDS ORDERED: DEXTROSE 50% 50 ML SYRINGE IV PRN ×2 (18:00)
[2016-12-03] MEDS: MAGNESIUM SULFATE 20 GM/500 ML 500 ML IV SCH (18:23)
[2016-12-03] MEDS: INSULIN ASPART [NOVOLOG] 3 ML PEN SC SCH (18:32)
--- NOTE | 2016-12-03 19:22 | HP ---
Date/Time of Note Date/Time of Note DATE: 12/03/16 TIME: 19:20 OB - History Hx of Present Free Text/Dictation at 35 weeks with uterine ctxs Care: Good Care Ultrasounds: Normal mid trimester US Obstetrical Complications: None, Gestational Diabetes Medical Complications: None Past Family/Social History * Past Medical, Surgical, Family and Obstetric Histories reviewed from chart. OB Admission Exam Vital Signs Vital Signs Vital Signs Date Time Temp Pulse Resp B/P Pulse Ox O2 Delivery O2 Flow Rate FiO2 12/03/16 12:09 97.9 105 127/81 Room Air Physical Exam HEENT: WNL Heart: Rhythm Normal Lungs: Clear, Equal Abdomen: WNL Extremities: Normal Reflexes: Normal Cervical Dilatation: None Effacement: 0% Station: Ballotable Membranes: Intact Last 72 hourBlood Glucose Bedside Glucose - 72 Hours Test 12/03/16 18:00 Bedside Glucose 87mg/dL (70-220) Last 72 hours Lab Results Magnesium Level Test 12/03/16 17:45 Magnesium Level 1.6 L OB Assessment/Plan Reason for admission: labor Induction Method: other (magnesium and ampicillin) ABHISHEK MC MD Dec 03, 2016 19:22
[2016-12-03] MEDS ORDERED: ACCU-CHEK XX SCH ×4 (20:00)
[2016-12-03] MEDS: LACTATED RINGER'S 1,000 ML IV SCH (20:19)
[2016-12-03] MEDS: NPH, HUMAN INSULIN ISOPHANE 3ML VIAL SC SCH (21:37)
[2016-12-03] MEDS: AMPICILLIN 1 GM/NS (PMX) 50 ML IV SCH (21:41)
[2016-12-03] MEDS: ACETAMINOPHEN 325 MG TAB PO PRN (22:09)
[2016-12-04] MEDS: AMPICILLIN 1 GM/NS (PMX) 50 ML IV SCH ×6 (01:27→21:54)
[2016-12-04] MEDS: MAGNESIUM SULFATE 20 GM/500 ML 500 ML IV SCH (02:20)
[2016-12-04] MEDS: ACETAMINOPHEN 325 MG TAB PO PRN (05:45)
[2016-12-04] MEDS ORDERED: INSULIN ASPART [NOVOLOG] 3 ML PEN SC SCH ×2 (07:00→14:00)
[2016-12-04] MEDS ORDERED: NPH, HUMAN INSULIN ISOPHANE 3ML VIAL SC SCH (07:00)
[2016-12-04] MEDS ORDERED: PHENYLephrine (100 MCG/ML) 5ML SYG ONE (07:00)
[2016-12-04] MEDS ORDERED: OXYTOCIN 30 UNITS/LR 500 ML BAG IV ONE (07:00)
[2016-12-04] MEDS: LACTATED RINGER'S 1,000 ML IV SCH ×2 (08:03→18:48)
[2016-12-04] MEDS: INSULIN ASPART [NOVOLOG] 3 ML PEN SC SCH ×2 (09:10→17:35)
[2016-12-04] MEDS ORDERED: GLUCOSE GEL 15 GRAM TUBE PO PRN ×2 (11:00)
[2016-12-04] MEDS ORDERED: GLUCAGON 1 MG INJ IM PRN (11:00)
[2016-12-04] MEDS ORDERED: DEXTROSE 50% 50 ML SYRINGE IV PRN ×2 (11:00)
[2016-12-04] MEDS ORDERED: GLUCOSE GEL 15 GRAM TUBE BUCCAL PRN (11:00)
[2016-12-04] MEDS ORDERED: LACTATED RINGER'S 500 ML IV ONE (11:30)
[2016-12-04] MEDS ORDERED: BETAMET NA PHOS/AC(6 MG/ML) 5ML INJ IM ONE (11:30)
[2016-12-04] MEDS: ACCU-CHEK XX SCH ×2 (15:00→19:31)
[2016-12-04] MEDS ORDERED: ACCU-CHEK XX SCH (17:00)
[2016-12-04] MEDS ORDERED: LACTATED RINGER'S 1,000 ML IV ONE (17:30)
[2016-12-04] MEDS: NIFEdipine 10 MG CAP PO SCH ×3 (18:41→19:49)
[2016-12-04] MEDS: NPH, HUMAN INSULIN ISOPHANE 3ML VIAL SC SCH (21:12)
[2016-12-04] MEDS ORDERED: TERBUTALINE 1 ML ONE (21:30)
[2016-12-04] MEDS ORDERED: TERBUTALINE 1 MG/ML INJ SC ONE (21:30)
[2016-12-04] MEDS: TERBUTALINE 1 MG/ML INJ SC ONE ×2 (22:00→22:44)
[2016-12-04] MEDS ORDERED: OXYTOCIN 30 UNITS/LR 500 ML IV SCH (22:30)
[2016-12-04] MEDS ORDERED: OXYTOCIN 30 UNITS/LR 500 ML IV PRN (22:30)
[2016-12-04] MEDS ORDERED: MISOPROSTOL 200 MCG TAB PR PRN (22:30)
[2016-12-04] MEDS ORDERED: METHYLERGONOVINE 0.2 MG INJ IM PRN (22:30)
[2016-12-04] MEDS ORDERED: CARBOPROST 250 MCG INJ IM PRN (22:30)
[2016-12-04] MEDS ORDERED: CEFAZOLIN 2 GM/50 ML (PMX) 50 ML IV SCH (22:30)
[2016-12-04] MEDS ORDERED: ONDANSETRON 4 MG INJ IV ONE (22:34)
--- NOTE | 2016-12-04 22:38 | QN ---
Documentation Comment Pt. has been off magnesium and has started to have regular uterine ctxs. Procardia has not decreased the ctx. discssed with patient regarding the circumstances and she does not wish for anymore tocolytics and request a repeat c/s ABHISHEK MC MD Dec 04, 2016 22:38
[2016-12-04] MEDS ORDERED: DEXAMETHASONE 4 MG/ML 1 ML INJ ONE (22:54)
[2016-12-04] MEDS ORDERED: OXYTOCIN 10 UNIT INJ ONE (22:54)
[2016-12-04] MEDS ORDERED: KETOROLAC 30 MG INJ ONE (22:54)
[2016-12-04] MEDS ORDERED: morphine SULFATE/PF (10 MG/10 ML) INJ ONE (22:54)
[2016-12-04] MEDS ORDERED: METOCLOPRAMIDE 10 MG INJ ONE (22:54)
[2016-12-04] MEDS ORDERED: ESMOLOL 10 ML ONE (22:59)
[2016-12-04] MEDS ORDERED: CITRIC ACID/NA CITRATE 30 ML CUP PO ONE (23:00)
[2016-12-05] MEDS ORDERED: ONDANSETRON 4 MG INJ IV PRN
[2016-12-05] MEDS ORDERED: NALBUPHINE HCL (10 MG/1 ML) INJ IV PRN
[2016-12-05] MEDS ORDERED: morphine 2 MG INJ IV PRN
[2016-12-05] MEDS ORDERED: morphine 4 MG/ML VIAL IV PRN
[2016-12-05] MEDS ORDERED: DIPHENHYDRAMINE 50 MG INJ IV PRN
[2016-12-05] MEDS ORDERED: NALOXONE (0.4 MG/ML) INJ IV PRN
[2016-12-05] MEDS ORDERED: HYDROmorphONE 1 MG/ML SYG IV PRN ×2
[2016-12-05] MEDS ORDERED: ACETAMINOPHEN 500 MG TAB PO PRN
[2016-12-05] MEDS ORDERED: HYDROCODONE/APAP (5/325) TAB PO PRN
[2016-12-05] MEDS: AMPICILLIN 1 GM/NS (PMX) 50 ML IV SCH (01:00)
--- NOTE | 2016-12-05 01:40 | OPPN ---
Date/Time of Note Date/Time of Note DATE: 12/05/16 TIME: 01:39 Post-Anesthesia Notes Post-Anesthesia Note Last documented vital signs Vital Signs Date Time Temp Pulse Resp B/P Pulse Ox O2 Delivery O2 Flow Rate FiO2 12/03/16 12:09 97.9 105 127/81 Room Air Activity: WNL Respiratory function: WNL Cardiovascular function: WNL Mental status: Baseline Pain reasonably controlled: Yes Hydration appropriate: Yes Nausea/Vomiting absent: Yes BIRGIT PERLA MD Dec 05, 2016 01:40
[2016-12-05 01:45] LABS: ADD SCAN DIFF NO
[2016-12-05 02:02] LABS: BASOPHILS % 0.1 % (0.0-2.0); LYMPHOCYTES # 0.7 10^3/ul (0.8-2.9); LYMPHOCYTES % 4.8 % (15.0-51.0); MEAN CORPUSCULAR HEMOGLOBIN 29.1 pg (29.0-33.0); MEAN CORPUSCULAR HGB CONC 33.3 g/dl (32.0-37.0); MEAN CORPUSCULAR VOLUME 87.2 fl (82.0-101.0); MEAN PLATELET VOLUME 10.8 fl (7.4-10.4); MONOCYTE # 0.4 10^3/ul (0.3-0.9); NEUTROPHIL # 13.3 10^3/ul (1.6-7.5); NEUTROPHILS % 91.4 % (39.0-77.0); PLATELET COUNT 274 10^3/UL (140-415); RED BLOOD COUNT 4.13 10^6/ul (4.20-5.40); RED CELL DISTRIBUTION WIDTH 12.8 % (11.5-14.5); WHITE BLOOD COUNT 14.5 10^3/ul (4.8-10.8)
[2016-12-05 02:06] LABS: INR 1.13; PROTIME 14.5 Sec (12.2-14.2); PT RATIO 1.1
[2016-12-05 02:07] LABS: PARTIAL THROMBOPLASTIN TIME 24.1 Sec (25.0-35.0)
[2016-12-05] MEDS: KETOROLAC 30 MG INJ IV PRN ×2 (03:31→21:36)
[2016-12-05 04:10] VITALS: BP 122/69; PULSE 98; RESP 20
[2016-12-05] MEDS ORDERED: METHYLERGONOVINE 0.2 MG INJ IM PRN (04:30)
[2016-12-05] MEDS ORDERED: OXYTOCIN 30 UNITS/LR 500 ML IV PRN (04:30)
[2016-12-05] MEDS ORDERED: MISOPROSTOL 200 MCG TAB PR PRN (04:30)
[2016-12-05] MEDS ORDERED: CARBOPROST 250 MCG INJ IM PRN (04:30)
[2016-12-05] MEDS ORDERED: NACL 0.9% 3 ML SYG IV SCH (04:30)
[2016-12-05] MEDS ORDERED: NA PHOSPHATE/BIPHOS 133 ML ENEMA PR PRN (04:30)
[2016-12-05] MEDS: OXYTOCIN 30 UNITS/LR 500 ML IV SCH ×2 (05:00→08:17)
[2016-12-05 08:00] VITALS: BP 133/65; PULSE 93; RESP 18
[2016-12-05] MEDS: LACTATED RINGER'S 1,000 ML IV SCH ×3 (09:08→20:17)
[2016-12-05 09:56] LABS: ADD SCAN DIFF NO
[2016-12-05 10:01] LABS: BASOPHILS % 0.1 % (0.0-2.0); HEMATOCRIT 31.2 % (37.0-47.0); HEMOGLOBIN 10.6 g/dl (12.0-16.0); LYMPHOCYTES # 1.5 10^3/ul (0.8-2.9); LYMPHOCYTES % 9.7 % (15.0-51.0); MEAN CORPUSCULAR HEMOGLOBIN 29.3 pg (29.0-33.0); MEAN CORPUSCULAR VOLUME 86.2 fl (82.0-101.0); MEAN PLATELET VOLUME 10.4 fl (7.4-10.4); MONOCYTE # 0.9 10^3/ul (0.3-0.9); MONOCYTES % 5.7 % (0.0-11.0); NEUTROPHIL # 12.7 10^3/ul (1.6-7.5); NEUTROPHILS % 84.1 % (39.0-77.0); PLATELET COUNT 247 10^3/UL (140-415); RED BLOOD COUNT 3.62 10^6/ul (4.20-5.40); RED CELL DISTRIBUTION WIDTH 12.7 % (11.5-14.5); WHITE BLOOD COUNT 15.1 10^3/ul (4.8-10.8)
[2016-12-05 12:00] VITALS: BP 112/57; PULSE 84; RESP 16
[2016-12-05 16:00] VITALS: BP 106/60; PULSE 88; RESP 16
[2016-12-05 20:00] VITALS: BP 110/70; PULSE 75; RESP 20
[2016-12-05] MEDS ORDERED: ACETAMINOPHEN/CODEINE #3 TAB PO PRN (23:01)
[2016-12-06] MEDS: IBUPROFEN 800 MG TAB PO SCH ×4 (00:05→21:21)
[2016-12-06 04:05] VITALS: BP 115/65; PULSE 74; RESP 20
[2016-12-06] MEDS: LACTATED RINGER'S 1,000 ML IV SCH ×2 (04:17→12:17)
[2016-12-06 08:00] VITALS: BP 107/66; PULSE 77; RESP 18
[2016-12-06] MEDS: OXYCODONE/ACETAMINOPHEN (5/325) TAB PO PRN (10:45)
--- NOTE | 2016-12-06 12:03 | OPR ---
Operative Report Planned Procedure Procedure date Dec 06, 2016 Performed by: ABHISHEK MC MD Assisting provider: NICOLE WAGONER Anesthesia Type: spinal Procedure Description Under satisfactory [spinal ] anesthesia, the patient was prepped and draped and placed in a supine position, tilted to the left. Pfannenstiel incision was made , carried through the subcutaneous tissue. Bleeders brought under control with electrocautery. Fascia incised to the length of the incision. Rectus muscles from the fascia, divided midline. Peritoneum exposed, entered through a transverse incision. Exploration of abdomen revealed gravid uterus. Bladder flap was developed. Transverse incision was made in the lower segment of the uterus. Amniotic sac ruptured. [clear] amniotic fluid noted. [] Nasal oropharyngeal suction was performed. The baby was handed to the team for immediate attention. The placenta was delivered manually intact. Uterine cavity was cleaned with wet sponge and drainage established. Uterus closed in 2 layers using one monocryl in continuous fashion. Peritoneal cavity irrigated with warm saline. Sponge, needle and instrument count reported to be correct. . Fascia closed with [one monocryl], and skin closed with yudy. Estimated blood loss [700]mL. Urine bag contained []mL of urine Post-Procedure Findings: Live Baby [], Apgars [] and [], weight [], position [], [] presentation []cord. Complications: None Pt Condition post procedure: stable Physician Certification I, the undersigned physician, hereby certify that I have discussed the procedure described in this consent form with this patient (or the patient's legal client care representative), including: * The risk and benefits of the procedure; * Any adverse reactions that may reasonably be expected to occur; * Any alternative efficacious methods of treatment which may be medically viable ; * The potential problems that may occur during recuperation; * Potential for blood transfusion and associated risks/benefits; and * Any research or economic interest I may have regarding this treatment. I further certify that the patient/legally responsible person was encouraged to ask question and that all questions were answered. ABHISHEK MC MD Dec 06, 2016 12:02
[2016-12-06 20:09] VITALS: BP 109/72; PULSE 78; RESP 20
[2016-12-07 04:25] VITALS: BP 119/74; PULSE 74; RESP 18
[2016-12-07] MEDS: IBUPROFEN 800 MG TAB PO SCH ×3 (05:42→22:23)
[2016-12-07 08:00] VITALS: BP 113/72; PULSE 82; RESP 18
[2016-12-07] MEDS ORDERED: MEASLES,MUMPS,RUBELLA VACCINE INJ SC* ONE (09:00)
[2016-12-07] MEDS ORDERED: DIPHTH/TET/ACEL PERTUSS (ADULT) 0.5 ML VIAL IM* ONE (09:00)
[2016-12-07] MEDS: OXYCODONE/ACETAMINOPHEN (5/325) TAB PO PRN (12:15)
[2016-12-07] MEDS: LANOLIN 7 GM TUBE TOP PRN (15:28)
[2016-12-07 15:43] VITALS: BP 114/67; PULSE 72; RESP 19
[2016-12-07 19:30] VITALS: BP_SYST 129; BP_SYST 137; BP_DIAS 79; BP_DIAS 85; PULSE 66; PULSE 72; RESP 20
[2016-12-07 20:00] VITALS: BP 129/79; PULSE 66; RESP 20
[2016-12-08 03:48] VITALS: BP 118/86; PULSE 58; RESP 16
[2016-12-08] MEDS: IBUPROFEN 800 MG TAB PO SCH ×2 (06:30→13:06)
[2016-12-08 07:42] VITALS: BP 131/81; PULSE 70; RESP 18
[2016-12-08] MEDS ORDERED: DIPHTH/TET/ACEL PERTUSS (ADULT) 0.5 ML VIAL IM* ONE (09:00)
--- NOTE | 2016-12-08 13:05 | DS ---
Date/Time of Note Date/Time of Note DATE: 12/08/16 TIME: 13:04 Obstetrical Discharge Record Final Diagnosis Final Diagnosis: delivered Section Section: Repeat Condition on Discharge Physical Assessment Voiding: Yes Bowel Movement: Yes Breast: Soft, non-tender Fundus: Firm Abdomen and Incision: CDI Calf Tenderness: No Patient Condition: Stable AUBREY RICHEY MD Dec 08, 2016 13:04
[2016-12-08] MEDS: LANOLIN 7 GM TUBE TOP PRN (13:06)
== END 2016-12-08 17:00 | disposition home or self-care (01) | DRG 766 ==
LOC: OBT 11:40 → L-D 11:41 → OBG 16:45 → OBT 16:45 → L-D 12-04 22:11 → PP1 12-05 04:06
PROVIDERS: ADMIT Obstetrics & Gynecology; ATTEND Obstetrics & Gynecology
PROC: 10D00Z1 Extraction of Products of Conception, Low, Open Approach (ICD-10-PCS; principal; 2016-12-06)
DX: O60.14X0 Preterm labor third trimester with preterm delivery third trimester, not applicable or unspecified (principal); O24.429 Gestational diabetes mellitus in childbirth, unspecified control; Z3A.35 35 weeks gestation of pregnancy; Z37.0 Single live birth; O34.219 Maternal care for unspecified type scar from previous cesarean delivery
CPT/HCPCS: 36415; 81001; 82962; 83735; 85025; 85610; 85730; 86592; 86850; 86900; 86901; 87340; 88307; 90715; 94760; 96360; 96361; 96372; 99464; G0463; J0290; J0690; J0702; J1100; J1815; J1885; J2274; J2370; J2405; J2590; J2765; J3105; J3475; J7120

== ENCOUNTER 2016-12-11 20:52 | Emergency (ER) | payer OTHER ==
[~2016-12-11] VITALS: Ht 162.6 cm; Wt 89.0 kg
[~2016-12-11 20:52] MED LIST changes: -ASPI-664 PO; -INSU100I22 SC; -NOVO3I IV; -NPH,100I5 SQ; -NPH,100V SQ; -PREN1TAB17 PO
[2016-12-11 21:03] VITALS: Ht 162.6 cm; Wt 89.0 kg
[2016-12-11] MEDS ORDERED: CEPH500C PO (23:24)
--- NOTE | 2016-12-12 00:53 | ERD ---
ER Documentation Chief Complaint Date/Time DATE: 12/12/16 TIME: 00:50 Chief Complaint for staple removal csection site- pelvic area HPI This is a 26-year-old female patient with a recent surgery that occurred on December 04 presenting for a wound check and staple removal of the incisional site. Patient states that her surgeon was Dr. Holland and he was supposed to take out the yudy today however they have told her to follow-up with her PARTY PLAN DEALER. Patient said that her PARTY PLAN DEALER appointment is Friday before she came to the ER. Patient states that there is mild tenderness since December 04. She denies any fevers. Denies any discharge ROS All systems reviewed and are negative except as per history of present illness. Medications Home Meds Active Scripts Cephalexin* (Cephalexin*) 500 Mg Capsule, 500 MG PO Q6, #30 CAP Prov:MARIBELL URIAS PA-C 12/11/16 Reported Medications Calcium Carbonate* (Calcium Carbonate*) 600 MG Ca Tab, 600 MG PO DAILY, TAB 11/02/16 Ferrous Sulfate (Iron) 325 Mg Capsule.er, 325 MG PO DAILY, CAP 10/26/16 Discontinued Reported Medications NPH, Human Insulin Isophane (Humulin N Kwikpen) 100 Unit/1 Ml Insuln.pen, 20 UNIT SQ BEDTIME, EA 11/02/16 Aspirin* (Aspirin* EC) 81 Mg Tablet.dr, 81 MG PO DAILY, TAB 10/26/16 Insulin Aspart (Novolog FlexPen) 100 Unit/1 Ml Insuln.pen, 15 UNITS SC WITH BREAKFAST, EA 10/13/16 Insulin Aspart* (Novolog Insulin Pen*) 100 Unit/Ml Soln, 16 UNIT IV AC DINNER 03/17/13 Nph, Human Insulin Isophane (Humulin N) 100 Units/Ml Vial, 25 SQ AC BREAKFAST 03/17/13 Vit-Iron Fumarate-FA ( Tablet) 1 Each Tablet, 1 EACH PO DAILY 03/17/13 Allergies Allergies: Coded Allergies: No Known Allergies (Verified Allergy, Unknown, 12/11/16) PMhx/Soc History of Surgery: Yes (csection) Anesthesia Reaction: No Hx Neurological Disorder: No Hx Respiratory Disorders: No Hx Cardiac Disorders: No Hx Psychiatric Problems: No Hx Miscellaneous Medical Probl: Yes (gestational diabetes) Hx Alcohol Use: No Hx Substance Use: No Hx Tobacco Use: No Physical Exam Vitals Vital Signs Date Time Temp Pulse Resp B/P Pulse Ox O2 Delivery O2 Flow Rate FiO2 12/11/16 21:03 98.2 86 20 155/91 99 Physical Exam General: WD/WN, in no apparent distress, non-toxic appearing HENT: NC/AT Eyes: Conjunctiva normal Neck: Supple Pulm: Clear to auscultation, normal labored breathing; no wheezing/rales/ rhonchi heard CV: Good capillary refill GI: Non-distended, no guarding Back: No masses Ext: No clubbing, cyanosis, or edema Neuro: Moves on all fours Skin: site with yudy intact in the pelvic region, right 1 cm is mild pink erythematous with no discharge or induration. Psych: Normal mood Procedures/MDM This is a 26-year-old female presenting to the emergency department with a history of a on December [address] Holland. Patient was asking to remove her yudy however I do not believe that the yudy were ready to come out yet. On 1 cm of the incisional site appeared irritated therefore I have removed 3 yudy, I believe patient should be on Keflex for prophylaxis. I have discussed with this case with , who has evaluated the patient as well and agrees with my plan. I discussed the patient to follow-up with her OB/ BALE STACKER in the next couple days. Discussed return the ER for any worsening sinus symptoms. Patient understands and agrees with this plan Departure Diagnosis: Primary Impression: Encounter for removal of sutures Additional Impression: section wound complication Condition: Stable Patient Instructions: Post Op Wound Check, General, Staple Removal, No Complication Additional Instructions: FOLLOW UP WITH YOUR PRIMARY CARE PHYSICIAN TOMORROW.Return to this facility if you are not improving as expected. Take all medicines as directed. Return to this facility if you are not improving as expected. MARIBELL URIAS PA-C Dec 12, 2016 00:53
== END 2016-12-11 23:38 | disposition home or self-care (01) ==
LOC: FTE 20:52
DX: Z48.01 Encounter for change or removal of surgical wound dressing (principal); Z79.4 Long term (current) use of insulin; Z79.82 Long term (current) use of aspirin
CPT/HCPCS: 99283

== ENCOUNTER 2016-12-15 13:24 | Emergency (ER) | payer OTHER ==
[~2016-12-15] VITALS: Ht 162.6 cm; Wt 87.5 kg
[~2016-12-15 13:24] MED LIST changes: +CEPH500C PO
[2016-12-15 13:34] VITALS: Ht 162.6 cm; Wt 87.5 kg
[2016-12-15] MEDS ORDERED: SULF1TAB31 PO (14:23)
[2016-12-15] MEDS ORDERED: IBUP400T22 PO (14:23)
--- NOTE | 2016-12-15 14:43 | ERA ---
ER Documentation Chief Complaint Date/Time DATE: 12/15/16 TIME: 14:39 Chief Complaint scar opening HPI This is a 26-year-old female who had a section on December 04 presenting with possible suture dehiscence. Patient states that she was evaluated on Friday and 3 yudy were removed and patient was put on Keflex. Patient has been taking Keflex as prescribed. Also complains of recent foul odor. Denies fever, drainage, pain, or discoloration skin. Patient has no other complaints and describes no other associated manifestations. Nursing notes have been reviewed and are consistent with history ROS All systems reviewed and are negative except as per history of present illness. Medications Home Meds Active Scripts Ibuprofen* (Motrin*) 400 Mg Tab, 400 MG PO Q6, #30 TAB Prov:ILANA SHELTON PA-C 12/15/16 Sulfamethoxazole/Trimethoprim* (Bactrim Ds* Tablet) 1 Each Tablet, 1 TAB PO BID , #14 TAB Prov:ILANA SHELTON PA-C 12/15/16 Cephalexin* (Cephalexin*) 500 Mg Capsule, 500 MG PO Q6, #30 CAP Prov:MARIBELL URIAS PA-C 12/11/16 Reported Medications Calcium Carbonate* (Calcium Carbonate*) 600 MG Ca Tab, 600 MG PO DAILY, TAB 11/02/16 Ferrous Sulfate (Iron) 325 Mg Capsule.er, 325 MG PO DAILY, CAP 10/26/16 Discontinued Reported Medications NPH, Human Insulin Isophane (Humulin N Kwikpen) 100 Unit/1 Ml Insuln.pen, 20 UNIT SQ BEDTIME, EA 11/02/16 Aspirin* (Aspirin* EC) 81 Mg Tablet.dr, 81 MG PO DAILY, TAB 10/26/16 Insulin Aspart (Novolog FlexPen) 100 Unit/1 Ml Insuln.pen, 15 UNITS SC WITH BREAKFAST, EA 10/13/16 Insulin Aspart* (Novolog Insulin Pen*) 100 Unit/Ml Soln, 16 UNIT IV AC DINNER 03/17/13 Nph, Human Insulin Isophane (Humulin N) 100 Units/Ml Vial, 25 SQ AC BREAKFAST 03/17/13 Vit-Iron Fumarate-FA ( Tablet) 1 Each Tablet, 1 EACH PO DAILY 03/17/13 Allergies Allergies: Coded Allergies: No Known Allergies (Verified Allergy, Unknown, 12/15/16) PMhx/Soc History of Surgery: Yes (csection) Anesthesia Reaction: No Hx Neurological Disorder: No Hx Respiratory Disorders: No Hx Cardiac Disorders: No Hx Psychiatric Problems: No Hx Miscellaneous Medical Probl: Yes (gestational diabetes) Hx Alcohol Use: No Hx Substance Use: No Hx Tobacco Use: No Physical Exam Vitals Vital Signs Date Time Temp Pulse Resp B/P Pulse Ox O2 Delivery O2 Flow Rate FiO2 12/15/16 13:34 98.6 90 19 132/75 99 Physical Exam Const: Overweight 26-year-old female no acute distress Head: Atraumatic Eyes: Normal Conjunctiva ENT: Normal External Ears, Nose and Mouth. Neck: Full range of motion..~ No meningismus. Resp: Clear to auscultation bilaterally Cardio: Regular rate and rhythm, no murmurs Abd: Soft, non tender, non distended. Normal bowel sounds Skin: Mild erythema around the site of section on the right side of her yudy have been removed. No fluctuance, induration, or tenderness. No discharge noted. No petechiae or rashes Back: No midline or flank tenderness Ext: No cyanosis, or edema Neur: Awake and alert Psych: Normal Mood and Affect Procedures/MDM 26-year-old female presented with a chief complaint of possible suture dehiscence. There is mild dehiscence at the right side of the wound were 3 yudy were removed 5 days ago. At this time of little suspicion for bacteremia, abscess or other systemic involvement. Patient has been on Keflex. Due to other possible signs of infection including erythema and foul odor patient will be given Bactrim as well as ibuprofen for discomfort. My attending Dr. Villalobos has evaluated the patient himself and is agreed with this plan of management. Patient's vitals are stable and her current condition is appropriate for discharge. Departure Diagnosis: Primary Impression: Encounter for wound re-check Condition: Stable Patient Instructions: Post Op Wound Check, Pain Additional Instructions: Follow-up with surgeon within the next 2-3 days for reevaluation of wound and possible staple removal. If symptoms change or worsen return to emergency department immediately. If a question about the medications given as before you leave or ask pharmacist. Take the entire course of medications. If adverse reactions arise return to the emergency department immediately. ILANA SHELTON PA-C Dec 15, 2016 14:43
== END 2016-12-15 14:57 | disposition home or self-care (01) ==
LOC: FTE 13:24
DX: Z48.01 Encounter for change or removal of surgical wound dressing (principal); Z79.4 Long term (current) use of insulin; Z79.82 Long term (current) use of aspirin
CPT/HCPCS: 99283

== ENCOUNTER 2017-01-13 15:10 | Emergency (ER) | payer OTHER ==
[~2017-01-13] VITALS: Ht 157.5 cm; Wt 87.0 kg
[~2017-01-13 15:10] MED LIST changes: +ASPI-664 PO; +IBUP400T22 PO; +INSU100I22 SC; +IRON45TA2 PO; +NOVO3I IV; +NPH,100I5 SQ; +NPH,100V SQ; +PREN1TAB17 PO; +SULF1TAB31 PO
[2017-01-13 15:17] VITALS: Ht 157.5 cm; Wt 87.0 kg
[2017-01-13] MEDS ORDERED: LIDOCAINE 1% (MDV) 20 ML INJ SC ONE (16:30)
[2017-01-13] MEDS ORDERED: CEFTRIAXONE 1 GM INJ IM ONE (16:30)
[2017-01-13] MEDS ORDERED: IBUPROFEN 600 MG TAB PO ONE (16:30)
[2017-01-13] MEDS ORDERED: TRIMETHOPRIM/SULFAMETHOX (DS) TAB PO ONE (16:30)
[2017-01-13] MEDS ORDERED: CEPH-443 PO (16:49)
[2017-01-13] MEDS ORDERED: SULF1TAB31 PO (16:49)
--- NOTE | 2017-01-13 16:52 | ERD ---
ER Documentation Chief Complaint Date/Time DATE: 01/13/17 TIME: 16:50 Chief Complaint Complains of abdominal snyder HPI This 18-year-old female presents with a one-week history of some pain swelling redness on her abdominal wall. History significant for approximately 1 month ago. She did have a postoperative infection possibly and was treated with antibiotics. She has been fine up until this week. She denies fevers, vomiting, vaginal bleeding, additional symptoms. ROS All systems reviewed and are negative except as per history of present illness. Medications Home Meds Active Scripts Sulfamethoxazole/Trimethoprim* (Bactrim Ds* Tablet) 1 Each Tablet, 1 TAB PO BID for 7 Days, #14 TAB Prov:MUSTAPHA KWOK MD 01/13/17 Cephalexin* (Keflex*) 500 Mg Capsule, 500 MG PO QID for 7 Days, CAP Prov:MUSTAPHA KWOK MD 01/13/17 Ibuprofen* (Motrin*) 400 Mg Tab, 400 MG PO Q6, #30 TAB Prov:ILANA SHELTON PA-C 12/15/16 Sulfamethoxazole/Trimethoprim* (Bactrim Ds* Tablet) 1 Each Tablet, 1 TAB PO BID , #14 TAB Prov:ILANA SHELTON PA-C 12/15/16 Cephalexin* (Cephalexin*) 500 Mg Capsule, 500 MG PO Q6, #30 CAP Prov:MARIBELL URIAS PA-C 12/11/16 Reported Medications Calcium Carbonate* (Calcium Carbonate*) 600 MG Ca Tab, 600 MG PO DAILY, TAB 11/02/16 Ferrous Sulfate (Iron) 325 Mg Capsule.er, 325 MG PO DAILY, CAP 10/26/16 Allergies Allergies: Coded Allergies: No Known Allergies (Verified Allergy, Unknown, 01/13/17) PMhx/Soc History of Surgery: Yes (csection) Anesthesia Reaction: No Hx Neurological Disorder: No Hx Respiratory Disorders: No Hx Cardiac Disorders: No Hx Psychiatric Problems: No Hx Miscellaneous Medical Probl: Yes (gestational diabetes) Hx Alcohol Use: No Hx Substance Use: No Hx Tobacco Use: No Smoking Status: Never smoker Physical Exam Vitals Vital Signs Date Time Temp Pulse Resp B/P Pulse Ox O2 Delivery O2 Flow Rate FiO2 01/13/17 15:17 98.9 103 20 156/83 97 Physical Exam Const: [] Alert, [id number] per. Head: Atraumatic Eyes: Normal Conjunctiva ENT: Normal External Ears, Nose and Mouth. Neck: Full range of motion..~ No meningismus. Resp: Clear to auscultation bilaterally Cardio: Regular rate and rhythm, no murmurs Abd: Soft, non tender, non distended. Normal bowel sounds Skin: No petechiae or rashes. On the abdominal wall is approximately 6 cm area of redness and erythema which is well demarcated. There is a central area of fluctuance and redness. There is no significant induration or streaking or vesicles. It is superior to the incision. Back: No midline or flank tenderness Ext: No cyanosis, or edema Neur: Awake and alert Psych: Normal Mood and Affect Results 24 hrs Current Medications Medications (Trade) Dose Ordered Sig/Komal Route PRN Reason Start Time Stop Time Status Last Admin Dose Admin Ceftriaxone Sodium (Rocephin) 1 gm ONCE ONCE IM 01/13/17 16:30 01/13/17 16:31 DC Lidocaine (Xylocaine 1% (Mdv) 20 ml) 20 ml ONCE ONCE SC 01/13/17 16:30 01/13/17 16:31 DC Trimethoprim/ Sulfamethoxazole (Bactrim (Ds)) 1 tab ONCE ONCE PO 01/13/17 16:30 01/13/17 16:31 DC Ibuprofen (Motrin) 600 mg ONCE ONCE PO 01/13/17 16:30 01/13/17 16:31 DC Procedures/MDM Patient presents with signs and symptoms of abdominal wall cellulitis and abscess. It does not appear to involve the incision. Procedure note-patient was given Rocephin 1 g IM and Bactrim double strength by mouth. Area of fluctuance and redness was prepped with Betadine. 3 cc of lidocaine was used for local infiltration. Incision was made with #11 scalpel. Pus was expressed. Loculations were broken up with a probe. Approximately 5 cm of quarter-inch gauze was used to pack the wound and the wound was dressed and patient tolerated procedure well. Patient was discharged home with Bactrim and Keflex and instructions for recheck in 2 3 days for gauze removal. She should return sooner for fevers, vomiting, new worsening symptoms. The patient was stable with no new complaints during the ER course. Clinically, there is no current evidence to suggest meningitis, sepsis, acute abdomen, pneumonia, acute coronary syndrome, pulmonary embolism, or any other emergent condition appearing to require further evaluation or hospitalization. The patient should certainly return for any new or worsening symptoms per the aftercare instructions. They should otherwise follow-up with her primary care doctor for reevaluation this week. Disclaimer: Inadvertent spelling and grammatical errors are likely due to EHR/ dictation software use and do not reflect on the overall quality of patient care. Also, please note that the electronic time recorded on this note does not necessarily reflect the actual time of the patient encounter. Departure Diagnosis: Primary Impression: Abscess Condition: Stable Patient Instructions: Abscess, Incision And Drainage Additional Instructions: Recheck in 2 days for gauze removal. Return sooner for fevers, vomiting, new worsening symptoms. MUSTAPHA KWOK MD Jan 13, 2017 16:52
== END 2017-01-13 17:45 | disposition home or self-care (01) ==
LOC: FTE 15:10
DX: L02.211 Cutaneous abscess of abdominal wall (principal)
CPT/HCPCS: 10060; 96372; J0696; Z7502; Z7610

== ENCOUNTER 2017-01-15 14:16 | Emergency (ER) | payer OTHER ==
[~2017-01-15] VITALS: Wt 72.7 kg
[~2017-01-15 14:16] MED LIST changes: -ASPI-664 PO; +CEPH-443 PO; -INSU100I22 SC; -IRON45TA2 PO; -NOVO3I IV; -NPH,100I5 SQ; -NPH,100V SQ; -PREN1TAB17 PO
[2017-01-15] MEDS ORDERED: HYDROCODONE/APAP (5/325) TAB PO ONE (16:00)
[2017-01-15] MEDS ORDERED: LIDOCAINE 2% (MDV) 20 ML INJ INJ ONE (16:00)
[2017-01-15] MEDS ORDERED: CEFTRIAXONE 1 GM INJ IM ONE (16:00)
--- NOTE | 2017-01-15 16:00 | ERD ---
ER Documentation Chief Complaint Date/Time DATE: 01/15/17 TIME: 15:55 Chief Complaint wound recheck HPI This is a 26-year-old female presents to the ER for recheck patient was seen here 2 days ago and had an incision and drainage done. Patient states that the area of redness has gone down a little bit, and has not spread. Patient does admit to a little bit of pain, however denies any fevers or chills. Patient denies any additional drainage from the area. She has been taking her medications as directed. ROS 12 point review of systems was done, all negative except per HPI. Medications Home Meds Active Scripts Sulfamethoxazole/Trimethoprim* (Bactrim Ds* Tablet) 1 Each Tablet, 1 TAB PO BID for 7 Days, #14 TAB Prov:MUSTAPHA KWOK MD 01/13/17 Cephalexin* (Keflex*) 500 Mg Capsule, 500 MG PO QID for 7 Days, CAP Prov:MUSTAPHA KWOK MD 01/13/17 Ibuprofen* (Motrin*) 400 Mg Tab, 400 MG PO Q6, #30 TAB Prov:ILANA SHELTON PA-C 12/15/16 Sulfamethoxazole/Trimethoprim* (Bactrim Ds* Tablet) 1 Each Tablet, 1 TAB PO BID , #14 TAB Prov:IALNA SHELTON PA-C 12/15/16 Cephalexin* (Cephalexin*) 500 Mg Capsule, 500 MG PO Q6, #30 CAP Prov:MARIBELL URIAS PA-C 12/11/16 Reported Medications Calcium Carbonate* (Calcium Carbonate*) 600 MG Ca Tab, 600 MG PO DAILY, TAB 11/02/16 Ferrous Sulfate (Iron) 325 Mg Capsule.er, 325 MG PO DAILY, CAP 10/26/16 Allergies Allergies: Coded Allergies: No Known Allergies (Verified Allergy, Unknown, 01/15/17) PMhx/Soc History of Surgery: Yes (csection) Anesthesia Reaction: No Hx Neurological Disorder: No Hx Respiratory Disorders: No Hx Cardiac Disorders: No Hx Psychiatric Problems: No Hx Miscellaneous Medical Probl: Yes (gestational diabetes) Hx Alcohol Use: No Hx Substance Use: No Hx Tobacco Use: No Smoking Status: Never smoker Physical Exam Vitals Vital Signs Date Time Temp Pulse Resp B/P Pulse Ox O2 Delivery O2 Flow Rate FiO2 01/15/17 14:19 98.6 86 20 130/68 98 Physical Exam GENERAL: The patient is well developed and appropriate for usual state of health , in no apparent distress. HEENT: Atraumatic. CHEST: Clear to auscultation bilaterally. There are no rales, wheezes or rhonchi. HEART: Regular rate and rhythm. No murmurs, clicks, rubs or gallops. ABDOMEN: Soft, nontender and nondistended. Good bowel sounds. No rebound or guarding. No gross peritonitis. No gross organomegaly or masses. No Burris sign or McBurney point tenderness. Patient has an 8cm * 6cm area of redness to the mid abdomen there is minimal warmth and no induration or streaking. Packing is in place and there is no excessive drainage or pain to the area. NEURO: Alert and oriented. Results 24 hrs Current Medications Medications (Trade) Dose Ordered Sig/Komal Route PRN Reason Start Time Stop Time Status Last Admin Dose Admin Ceftriaxone Sodium (Rocephin) 1 gm ONCE ONCE IM 01/15/17 16:00 01/15/17 16:01 Lidocaine (Xylocaine 2% (Mdv) 20 ml) 20 ml ONCE ONCE INJ 01/15/17 16:00 01/15/17 16:01 Acetaminophen/ Hydrocodone Bitart ([place] (5/325)) 1 tab ONCE ONCE PO 01/15/17 16:00 01/15/17 16:01 Procedures/MDM This is a 18-year-old female presents to the ER for recheck. Per patient she is feeling a little bit better, however there is still an area of redness and some pain. Abscess was unpacked by myself with no complications. Patient is afebrile and well-appearing, however because there is still some redness she will be given another dose of Rocephin. Suspicion for deep space infection, intra-abdominal abscess, sepsis is low. Area was marked, for follow up. Patient needs to return to ER in 48 hours for skin re check or sooner if symptoms worsen. My medical decision making was shared with the patient, she understands and agrees with plan. Departure Diagnosis: Primary Impression: Encounter for wound re-check Condition: Stable MIKE EMERSON Jan 15, 2017 15:58
== END 2017-01-15 16:25 | disposition home or self-care (01) ==
LOC: FTE 14:16
DX: L53.8 Other specified erythematous conditions (principal)
CPT/HCPCS: 96372; J0696; Z7502; Z7610